=== PATIENT | male | born 1990 ===

== ENCOUNTER 2018-07-08 17:48 | Emergency (ER) | payer OTHER, SELFPAY ==
[2018-07-08 17:54] VITALS: BP 112/69; PULSE 82; RESP 16; TEMP 36.8; O2SAT 95
--- NOTE | 2018-07-08 18:06 | DI.REPORT_ITS ---
SYMPTOM/DIAGNOSIS: PAIN, SWELLING AFTER FALL, ? FX LEFT FOREARM: Two views. There does appear to be a deformity involving the proximal metaphysis of the left radius suggesting a fracture. There is a joint effusion present. No other fracture or dislocation is seen. No radiopaque foreign bodies are seen in the soft tissues. IMPRESSION: Findings suspicious for a deformity of the proximal metaphysis of the left radius suspicious for a fracture. Large left elbow joint effusion. LEFT WRIST: Four views. No acute fracture or dislocation is seen. The soft tissues are unremarkable. IMPRESSION: Negative examination. LEFT ELBOW: Three views. There is a large joint effusion. There does appear to be a lucency through the neck of the left radius suggesting a nondisplaced fracture. No other fracture or dislocation is seen. IMPRESSION: Findings suspicious for a nondisplaced fracture involving the proximal left radius. Large left elbow joint effusion.
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
== END 2018-07-08 20:10 | disposition home or self-care (01) ==
PROVIDERS: Emergency Provider Emergency Medicine
DX: S52.125A Nondisplaced fracture of head of left radius, initial encounter for closed fracture (principal); M25.532 Pain in left wrist; V18.0XXA Pedal cycle driver injured in noncollision transport accident in nontraffic accident, initial encounter; Y93.55 Activity, bike riding
CPT/HCPCS: 24650; 99284; 73080; 73090; 73110; 99281; L3650